=== PATIENT | male | born 1965 | race Caucasian/White ===

== ENCOUNTER → 2017-10-26 | Outpatient (CLI) | payer OTHER ==
[~2017-10-26] MED LIST: HYDR-3366 PO; HYDR-3516 PO
[2017-10-26 09:25] LABS: AUTOMATED NEUTROPHIL # 4.1 TH/MM3 (1.8-7.7); BASOPHIL % 0.6 % (0.0-2.0); EOSINOPHIL # 0.3 TH/MM3 (0-0.4); EOSINOPHIL % 4.1 % (0.0-4.0); HEMATOCRIT 46.2 % (39.0-51.0); HEMOGLOBIN 16.2 GM/DL (13.0-17.0); LYMPH % 21.8 % (9.0-44.0); LYMPHOCYTE # 1.4 TH/MM3 (1.0-4.8); MEAN CORPUSCULAR HEMOGLOBIN 31.2 PG (27.0-34.0); MEAN PLATELET VOLUME 6.8 FL (7.0-11.0); MONO % 6.9 % (0.0-8.0); MONOCYTE # 0.4 TH/MM3 (0-0.9); NEUT % 66.6 % (16.0-70.0); PLATELET COUNT 330 TH/MM3 (150-450); RED CELL DISTRIBUTION WIDTH 12.8 % (11.6-17.2); WHITE BLOOD COUNT 6.2 TH/MM3 (4.0-11.0)
[2017-10-26 10:08] LABS: BICARBONATE 29.5 MEQ/L (21.0-32.0); CALCIUM 9.2 MG/DL (8.5-10.1); CREATININE 1.05 MG/DL (0.60-1.30)
--- NOTE | 2017-10-26 17:53 | EKG ---
Date Performed: 10/26/2017 Time Performed: 09:21:36 PTAGE: 52 years EKG: Sinus rhythm Normal ECG NO PREVIOUS TRACING DOCTOR: Torin Ocampo Interpretating Date/Time 10/26/2017 17:51:57
== END ==
LOC: CPRE 08:53
PROVIDERS: ATTEND Orthopaedic Surgery Orthopaedic Surgery of the Spine
DX: Z01.810 Encounter for preprocedural cardiovascular examination (principal); Z01.812 Encounter for preprocedural laboratory examination; S52.202A Unspecified fracture of shaft of left ulna, initial encounter for closed fracture
CPT/HCPCS: 36415; 80048; 85025; 93005

== ENCOUNTER → 2017-10-28 | Day surgery (SDC) | payer OTHER ==
[~2017-10-28] VITALS: Ht 175.3 cm; Wt 87.0 kg
[~2017-10-28] MED LIST changes: +ACETAMINOPHEN 1000 MG/100 ML 100 ML IV ONE; +ACETAMINOPHEN/HYDROcodone 325 MG/7.5 MG TAB PO PRN; +BUPIVACAINE HCL PF 0.5% 30 ML VIAL ONE; +CHLORHEXIDINE GLUCONATE 2 % 1 PACK (2 CLOTHS) TOPICAL PRN; +DEXAMETHASONE SOD PHOS 4 MG/ML VIAL IV ONE; +DO NOT ADM ANY ANTICOAGULANT DRUGS PRN; +ERYTHROMYCIN 0.5% OPTH OINT 1 GM TUBO ONE; +ERYTHROMYCIN 0.5% OPTH OINT 3.5 GM TUBO RIGHT EYE ONE; +GENTAMICIN SULFATE 80 MG/2 ML VIAL ONE; +LACTATED RINGER'S 1000 ML INJ 1,000 ML IV ONE; +LACTATED RINGER'S 1000 ML IV PRN; +LIDOCAINE HCL 1% PF 5 ML SYRINGE OTHER ONE; +METOPROLOL TARTRATE 25 MG TAB PO PRN; +MORPHINE SULFATE 2 MG/ML INJ IV PRN; +MORPHINE SULFATE 4 MG/ML INJ IV ONE; +ONDANSETRON HCL 4 MG/2 ML VIAL IV PUSH ONE; +POVIDONE IODINE 5% (ANTISEPSIS KIT) 4 APPLICATIONS EACH NARE PRN; +POVIDONE IODINE 7.5% SCRUB 118 ML BOTTLE TOPICAL SCH; +PROPOFOL 200 MG/20 ML AMP IV ONE; +SODIUM CHLORID 0.9% 500 ML IV PRN; +SODIUM CHLORIDE 0.9% 20 ML VIAL IV ONE; +TETRACAINE 0.5% OPTH SOLN 4 ML BTL RIGHT EYE ONE; +ceFAZolin 1,000 MG/NS 100 ML IV ONE; +ceFAZolin 2 GM PREMIX 50 ML IV SCH; +ceFAZolin INJ 1,000 MG VIAL IV ONE
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
--- NOTE | 2017-10-28 17:47 | RADRPT ---
EXAM DATE/TIME: 10/28/2017 14:30 [facility] COMPARISON: No previous studies available for comparison. INDICATIONS : Left forearm open reduction internal fixation. MEDICAL HISTORY : None. SURGICAL HISTORY : None. ENCOUNTER: Initial ACUITY: 1 day PAIN SCORE: Non-responsive. LOCATION: Left forearm FINDINGS: Two view examination of the left forearm demonstrates open reduction and internal fixation of a left ulnar fracture. Fracture has been stabilized with a extra nmedullary plate. There is satisfactory fra cture fragment alignment. CONCLUSION: Status post ORIF of a fractured left ulna. Ortiz Cortez MD on October 28, 2017 at 17:43 Board Certified Radiologist. This report was verified electronically.
[2017-10-28 18:00] VITALS: BP 159/93; PULSE 77; RESP 16; TEMP 98.6; O2SAT 95
== END | disposition home or self-care (01) ==
LOC: HSDC 09:40
PROVIDERS: ATTEND Orthopaedic Surgery Orthopaedic Surgery of the Spine
DX: S52.202A Unspecified fracture of shaft of left ulna, initial encounter for closed fracture (principal); V86.56XA Driver of dirt bike or motor/cross bike injured in nontraffic accident, initial encounter
CPT/HCPCS: 01830; 20680; 25545; 73090; 76000; C1713; J0131; J0690; J1100; J1580; J2270; J2405; J3010; J7120